=== PATIENT | male | born 1955 | race Caucasian/White ===

== ENCOUNTER 2017-04-04 09:24 | Emergency (ER) | payer OTHER ==
[2017-04-04 14:07] VITALS: BP 122/69
== END 2017-04-04 14:07 | disposition home or self-care (01) ==
LOC: ED 09:24
DX: J02.9 Acute pharyngitis, unspecified (principal); J98.01 Acute bronchospasm; I25.10 Atherosclerotic heart disease of native coronary artery without angina pectoris; E78.00 Pure hypercholesterolemia, unspecified; E11.9 Type 2 diabetes mellitus without complications; I10 Essential (primary) hypertension
CPT/HCPCS: 82962; 87804; J2930; J7613; J7644

== ENCOUNTER 2019-06-20 00:22 | Emergency (ER) | payer OTHER ==
[~2019-06-20] VITALS: Ht 167.6 cm; Wt 85.3 kg
[2019-06-20 00:30] VITALS: Ht 167.6 cm; Wt 85.3 kg
[2019-06-20 01:39] LABS: BASOPHIL % 0.2 % (0-2); PLATELET COUNT 138 x10^3mcL (130-400); RED CELL DISTRIBUTION WIDTH 11.9 % (11.5-14.5)
[2019-06-20 01:48] LABS: T3 TOTAL 0.96 ng/mL
[2019-06-20 02:03] LABS: CALCIUM 8.7 mg/dL (8.5-10.1); CARBON DIOXIDE 25.5 mmol/L (21-32); CHLORIDE SERUM 101 mmol/L (98-107); GFR1 > 60 mL/min; GLUCOSE SERUM 124 mg/dL (74-106); POTASSIUM SERUM 3.6 mmol/L (3.5-5.1); SODIUM SERUM 137 mmol/L (136-145)
[2019-06-20 02:16] LABS: ALBUMIN 3.6 g/dL (3.4-5.0); ALKALINE PHOSPHATASE 49 U/L (46-116); ALT/SGPT 38 U/L (16-63); AST/SGOT 20 U/L (15-37); BILIRUBIN TOTAL 0.59 mg/dL (0.20-1.00); TOTAL PROTEIN, SERUM 7.1 g/dL (6.4-8.2)
[2019-06-20 02:26] LABS: CK-MB 0.8 ng/mL (0-3.6)
[2019-06-20 02:50] LABS: FREE T4 1.18 ng/dL (0.76-1.46); FREE THYROXINE INDEX 1.8 ug/dL (1.4-4.5); T4(THYROXINE) 5.1 ug/dL (4.7-13.3)
[2019-06-20 02:58] LABS: microscopic required? NO
[2019-06-20 03:09] LABS: urine erythrocyte NEGATIVE (NEGATIVE)
[2019-06-20 05:45] VITALS: BP 113/75
== END 2019-06-20 05:45 | disposition home or self-care (01) ==
LOC: ED 00:22
PROVIDERS: Specialist
DX: J47.9 Bronchiectasis, uncomplicated (principal); I10 Essential (primary) hypertension; E10.9 Type 1 diabetes mellitus without complications; E11.9 Type 2 diabetes mellitus without complications; E78.00 Pure hypercholesterolemia, unspecified; Z88.8 Allergy status to other drugs, medicaments and biological substances; Z98.890 Other specified postprocedural states
CPT/HCPCS: 36600; 84439; 87804; J1956; J2405; J7030; Q0092; Q9967; U0002